=== PATIENT | female | born 1995 | race Two or more races ===

== ENCOUNTER 2024-04-16 09:21 | Emergency (ER) | payer OTHER ==
[~2024-04-16] VITALS: Ht 170.2 cm; Wt 92.6 kg
[2024-04-16] MEDS: ONDANSETRON HCL 4 MG/2 ML VIAL IV ONE ×2 (09:42→12:00)
[2024-04-16] MEDS: SODIUM CHLORIDE 0.9% 1,000 ML IV ONE (09:43)
[2024-04-16 09:44] VITALS: PULSE 81; RESP 18; O2SAT 99
[2024-04-16 09:51] LABS: Basophils # (auto) 0 10 ^3/uL (0-0.2); Eosinophils # (auto) 0 10 ^3/uL (0-0.8); Hemoglobin 8.9 g/dL (12.2-16.2); Monocytes # (auto) 0.3 10 ^3/uL (0-1.3); Monocytes % (auto) 2.6 % (0.0-12.0)
[2024-04-16 09:53] LABS: Basophils % (auto) 0.3 % (0.0-2.0); Hematocrit 29.8 % (36.0-46.0); Lymphocytes # (auto) 1.3 10 ^3/uL (0.4-5.4); Lymphocytes % (auto) 12.7 % (10.0-50.0); Mean Corpuscular Hemoglobin 17.4 pg (28.0-32.0); Mean Corpuscular Volume 57.9 fL (80.0-100.0); Neutrophils # (auto) 8.4 10 ^3/uL (1.6-8.6); Neutrophils % (auto) 84.4 % (37.0-80.0); Nucleated Red Blood Cells % 0.1 %; Red Blood Cells 5.14 10^6/uL (4.0-5.20); Red Cell Distribution Width 19.3 % (11.8-14.3); White Blood Cell 9.9 10^3/uL (4.4-10.8)
[2024-04-16 10:09] LABS: Alanine Aminotransferase 14 U/L (7-40); Alkaline Phosphatase 94 U/L (46-116); Anion Gap 10 (5-15); Aspartate Aminotransferase < 8 U/L (13-40); BUN/Creatinine Ratio 15.7 (10.0-20.0); Bilirubin, Total 0.6 mg/dL (0.2-1.0); Blood Urea Nitrogen 13 mg/dL (9-23); Calcium 9.8 mg/dL (8.5-10.1); Carbon Dioxide 22 mmol/L (20-30); Chloride 108 mmol/L (98-107); Glucose 133 mg/dL (74-106); Potassium 3.5 mmol/L (3.5-5.1); Sodium 140 mmol/L (136-145); Total Protein 7.9 g/dL (5.7-8.2)
[2024-04-16 10:16] LABS: Hypochromia Marked; Platelet Estimate Increased
[2024-04-16] MEDS: HALOPERIDOL LACTATE 5 MG/ML INJ VIAL IM ONE (12:00)
[2024-04-16] MEDS: MAALOX PLUS or MAALOX 30 ML PO ONE (12:00)
[2024-04-16 12:02] LABS: Lipase 39 U/L (12-53)
[2024-04-16 12:04] LABS: Amylase 66 U/L (30-118)
[2024-04-16 14:32] VITALS: BP 119/65; PULSE 59; RESP 13; O2SAT 100
== END 2024-04-16 14:44 | disposition home or self-care (01) ==
LOC: ER 09:21
DX: K76.0 Fatty (change of) liver, not elsewhere classified (principal); R10.2 Pelvic and perineal pain; K52.9 Noninfective gastroenteritis and colitis, unspecified; F15.90 Other stimulant use, unspecified, uncomplicated
CPT/HCPCS: 36415; 74176; 80053; 82150; 83690; 84702; 85025; 96361; 96372; 96374; 96376; 99285; J1630; J2405; J7030